=== PATIENT | female | born 1965 | race Caucasian/White ===

== ENCOUNTER 2019-05-10 17:42 | Emergency (ER) | payer OTHER ==
--- NOTE | 2019-05-10 18:33 | EDM.PDOC ---
ED HPI GENERAL MEDICAL PROBLEM - General Chief Complaint: General Stated Complaint: DIZZINESS,NAUSEA Time Seen by Provider: 05/10/19 18:12 Source of Information: Reports: Patient History Limitations: Reports: No Limitations - History of Present Illness INITIAL COMMENTS - FREE TEXT/NARRATIVE: 53-year-old female presents for evaluation and treatment of dizziness and nausea. Patient reports that she was working outside today. She got up to go inside to do paperwork and she had sudden onset dizziness. Reports dizziness primarily with movement. Little to no dizziness at rest. Reports associated symptoms of nausea. No headaches, vomiting, fevers, chills, cough, ear pain, chest pain, shortness of breath, numbness or tingling. Patient denies any recent trauma such as falls or motor vehicle accidents. Patient reports she had vertigo over 20 years ago and this feels similar. 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: - Past Surgical History HEENT Surgical History: Reports: Oral Surgery Female Surgical History: Reports: Tubal Ligation Musculoskeletal Surgical History: Reports: Other (See Below) Other Musculoskeletal Surgeries/Procedures:: broken arm Social & Family History - Family History Family Medical History: Noncontributory - Tobacco Use Smoking Status *Q: Never Smoker Second Hand Smoke Exposure: No ED ROS GENERAL - Review of Systems Review Of Systems: See Below Constitutional: Denies: Fever, Chills HEENT: Denies: Ear Pain Respiratory: Denies: Shortness of Breath, Cough Cardiovascular: Denies: Chest Pain GI/Abdominal: Reports: Nausea. Denies: Abdominal Pain, Vomiting Neurological: Reports: Dizziness. Denies: Headache, Numbness, Syncope, Tingling , Weakness ED EXAM, GENERAL - Physical Exam Exam: See Below Exam Limited By: No Limitations General Appearance: Alert, WD/WN, No Apparent Distress Eye Exam: Bilateral Eye: EOMI, Normal Inspection, Nystagmus (slight nystagmus with horizontal gaze), PERRL Ears: Normal External Exam, Normal Canal, Hearing Grossly Normal, Normal TMs Ear Exam: Bilateral Ear: Auricle Normal, Canal Normal, TM normal Nose: Normal Inspection Throat/Mouth: Normal Inspection, Normal Lips, Normal Oropharynx, Normal Voice, No Airway Compromise Respiratory/Chest: No Respiratory Distress, Lungs Clear, Normal Breath Sounds Cardiovascular: Normal Peripheral Pulses, Regular Rate, Rhythm, No Murmur Neurological: Alert, Oriented, Normal Cognition, Other (normal heel to pineda testing, 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 Will treat with meclizine and zofran. Discharge instructions as documented. Departure - Departure Time of Disposition: 18:43 Disposition: Home, Self-Care 01 Condition: Fair Clinical Impression: BPPV (benign paroxysmal positional vertigo), Nausea - Discharge Information *PRESCRIPTION DRUG MONITORING PROGRAM REVIEWED*: No *COPY OF PRESCRIPTION DRUG MONITORING REPORT IN PATIENT AKUA: No Prescriptions: Meclizine [Antivert] 25 mg PO TID PRN #20 tab.chew PRN Reason: Dizziness Ondansetron [Zofran ODT] 4 mg PO Q6H PRN #20 tab.dis PRN Reason: Nausea Instructions: Vertigo, [id number] Referrals: Kristin Muhammad [employer] [Primary Care Provider] - Forms: ED Department Discharge Additional Instructions: Meclizine 1 tab PO tid prn dizziness zofran 1 tabs sublingual every 6-8 hours prn nausea. If symptoms do not improve recommend follow-up with physical therapy for repositioning. Recommend [facility] here in town. Make sure you are drinking plenty of fluids. Please return to the ER should your symptoms change or worsen.
== END 2019-05-10 18:54 | disposition home or self-care (01) ==
LOC: JD.ED 17:42
DX: H81.10 Benign paroxysmal vertigo, unspecified ear (principal); R11.0 Nausea
CPT/HCPCS: 99283

== ENCOUNTER 2023-06-15 06:45 | Day surgery (SDC) | payer BC ==
[~2023-06-15 06:45] MED LIST: Dexamethasone 4 MG/ML 5 ML MDV ONE; Dexmedetomidine 200 MCG/2 ML SDV ONE; EPINEPHrine 1 MG/ML SDV ONE; Lactated Ringers 1,000 ML IV SCH; Lidocaine 1% 5 ML VIAL ONE; Midazolam 1 MG/ML 2 ML SDV ONE; Ondansetron 4 MG/2 ML SDV ONE; Propofol 200 MG/20 ML SDV ONE; Ropivacaine 0.5% 5 MG/ML 30 ML SDV ONE; Sodium Chloride 0.9% 10 ML Syringe FLUSH PRN; fentaNYL 250 MCG/5 ML SDV ONE
[2023-06-15] MEDS ORDERED: fentaNYL 100 MCG/2 ML SDV IVPUSH PRN (07:07)
[2023-06-15] MEDS ORDERED: HYDROmorphone 0.5 MG/0.5 ML Syringe IVPUSH PRN (07:07)
[2023-06-15] MEDS ORDERED: Ondansetron 4 MG/2 ML SDV IVPUSH PRN (07:07)
[2023-06-15] MEDS ORDERED: Tranexamic Acid 1,000 MG/10 ML Vial ONE (07:39)
[2023-06-15] MEDS ORDERED: Vancomycin 1 GM SDV ONE (07:40)
[2023-06-15] MEDS ORDERED: ceFAZolin 2 GM Vial ONE (07:44)
[2023-06-15] MEDS ORDERED: Rocuronium 50 MG/5 ML Vial ONE (07:46)
[2023-06-15] MEDS ORDERED: Phenylephrine 1% 10 MG/ML SDV ONE (08:30)
[2023-06-15] MEDS ORDERED: ePHEDrine 50 MG/ML SDV ONE (08:45)
[2023-06-15] MEDS ORDERED: Lactated Ringers 1,000 ML ONE (08:58)
[2023-06-15] MEDS ORDERED: Neostigmine Methylsulfate 10 MG/10 ML MDV ONE (09:08)
[2023-06-15] MEDS ORDERED: Ketorolac 30 MG/ML SDV ONE (09:09)
[2023-06-15] MEDS ORDERED: Sodium Chloride 0.9% 10 ML Syringe FLUSH PRN (09:54)
[2023-06-15] MEDS ORDERED: Sodium Chloride 0.9% 10 ML Syringe FLUSH SCH (10:00)
[2023-06-15] MEDS ORDERED: Lactated Ringers 1,000 ML IV SCH (10:00)
== END 2023-06-15 14:00 | disposition home or self-care (01) ==
LOC: JD.SDS 06:45
PROVIDERS: ATTEND Orthopaedic Surgery
DX: M19.012 Primary osteoarthritis, left shoulder (principal); G89.29 Other chronic pain; E78.5 Hyperlipidemia, unspecified; M10.9 Gout, unspecified; I25.10 Atherosclerotic heart disease of native coronary artery without angina pectoris; Z79.899 Other long term (current) drug therapy
CPT/HCPCS: 23472; 64415; 76000; 97161; C1713; C1769; C1776; J0171; J0690; J1100; J1885; J2250; J2371; J2405; J2704; J2710; J2795; J3010; J3370; J7030; J7120; 01638; J3490